=== PATIENT | male | born 1965 | race Caucasian/White ===

== ENCOUNTER 2020-11-14 05:15 | Emergency (ER) | payer OTHER ==
[~2020-11-14] VITALS: Ht 175.3 cm; Wt 83.9 kg
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
[2020-11-14 05:20] VITALS: BP 133/86
--- NOTE | 2020-11-14 05:20 | NUR ---
TO ED VIA EMS GURBRE. PER EMS REPORT PT WAS FOUND DOWN BY GIRLFRIEND AND APPEARED BLUE IN COLOR. EMS CALLED AND ADMINISTERED NARCAN 2MG X 2 DOSES WITH A POSITIVE RESPONSE. PT PRESENT TO ED ANSWERING QUESTIONS APPROPRIATLEY, BREATHING ON ROOM AIR WITH NO DISTRESS. TRANSFERRED TO BED 11.
--- NOTE | 2020-11-14 05:24 | NUR ---
SPOKE TO SHANDA (GIRLFRIEND) TO COLLECT MORE MEDICAL INFORMATION ON PATIENT. PER GRISELDA UNAWARE OF WHAT SUBSTANCE WAS INGESTED. PER SHANDA "PIPE WAS FOUND BY PATIENT ON BATHROOM FLOOR." PER GRISELDA WILLING TO RN FACULTY PATIENT UPON D/C. [phone].
--- NOTE | 2020-11-14 05:30 | NUR ---
IV ESTABLISHED, LAB DRAWN FROM IV START. PT TOLERATED WELL. Addendum: 11/14/20 at 0550 by [facility] TAKEN TO LAB - DELIVERED TO [facility].
[2020-11-14] MEDS: NACL 0.9% 1,000 ML IV ONE (05:40)
--- NOTE | 2020-11-14 05:48 | NUR ---
PT UNABLE TO PROVIDE URINE FOR UDS. ENCOURAGED PATIENT TO VOID. VERBALZIED UNDERSTANDING.
[2020-11-14 05:53] LABS: BASOPHILS % (AUTO) 0.4 % (0.0-2.0); EOSINOPHILS # (AUTO) 0.2 K/uL (0-0.4); EOSINOPHILS % (AUTO) 2.3 % (0.0-4.0); HEMATOCRIT 42.7 % (36-52); HEMOGLOBIN 14.4 g/dL (12.0-18.0); LYMPHOCYTES # (AUTO) 1.7 K/uL (2.0-11.5); LYMPHOCYTES % (AUTO) 24.6 % (20.5-51.1); MEAN CORPUSCULAR HEMOGLOBIN 30 pg (27-31); MEAN CORPUSCULAR HGB CONC 34 g/dL (33-37); MEAN CORPUSCULAR VOLUME 88.8 fL (80-94); MONOCYTES # (AUTO) 0.7 K/uL (0.8-1.0); MONOCYTES % (AUTO) 10.3 % (1.7-9.3); NEUTROPHILS # (AUTO) 4.3 K/uL (1.8-7.7); NEUTROPHILS % (AUTO) 62.4 % (42.2-75.2); PLATELET COUNT (AUTO) 241 K/uL (140-450); RED BLOOD CELL COUNT(AUTO) 4.81 MIL/uL (4.20-6.10); RED CELL DISTRIBUTION WIDTH 13.4 % (11.6-13.7)
[2020-11-14 06:46] LABS: ALBUMIN 3.7 g/dL (3.4-5.0); ANION GAP 11.3 (8-16); ASPARTATE AMINOTRANSFERASE 86 U/L (15-37); CARBON DIOXIDE 31.7 mmol/L (21-32); CHLORIDE 101 mmol/L (98-107); CREATININE 1.3 mg/dL (0.6-1.3); GFR ARICAN-AMERICAN 74 mL/min (>90); GLUCOSE 219 mg/dL (74-106); SODIUM SERUM 140 mmol/L (136-145); TOTAL BILIRUBIN 0.4 mg/dL (0.0-1.0); UREA NITROGEN, BLOOD 12 mg/dL (7-18)
--- NOTE | 2020-11-14 06:55 | NUR ---
Patient appears to be resting comfortably in bed. Vital Signs within normal limits. Respirations even and unlabored. Patient remains on reading tutor.
--- NOTE | 2020-11-14 07:09 | NUR ---
GAVE REPORT TO VIDHI LEVI, TRANSFER OF CARE.
[2020-11-14 07:45] VITALS: BP 117/76
--- NOTE | 2020-11-14 07:46 | NUR ---
Patient discharged with v/s stable. Written and verbal after care instructions given and explained. Patient verbalized understanding. Ambulatory with to car. All questions addressed prior to discharge. Advised to follow up with PMD.
== END 2020-11-14 07:21 | disposition home or self-care (01) ==
LOC: MED 05:15
DX: T50.901A Poisoning by unspecified drugs, medicaments and biological substances, accidental (unintentional), initial encounter (principal); Y92.89 Other specified places as the place of occurrence of the external cause
CPT/HCPCS: 36415; 80053; 85025; 96360; 99283; G0482; J7030